=== PATIENT | male | born 1950 | race Asian ===

== ENCOUNTER 2017-07-05 10:59 | Inpatient (IN) | payer OTHER ==
[~2017-07-05] VITALS: Ht 170.2 cm; Wt 69.4 kg
[2017-07-05 11:11] VITALS: Ht 170.2 cm; Wt 69.4 kg
[2017-07-05 11:36] LABS: BASOPHIL % 0.5 % (0-2); PLATELET COUNT 226 x10^3mcL (130-400); RED CELL DISTRIBUTION WIDTH 13.2 % (11.5-14.5)
[2017-07-05 11:46] LABS: CALCIUM 8.2 mg/dL (8.5-10.1); CHLORIDE SERUM 105 mmol/L (98-107); CREATININE SERUM 0.8 mg/dL (0.7-1.3); GFR1 > 60 mL/min; GLUCOSE SERUM 127 mg/dL (74-106); POTASSIUM SERUM 3.4 mmol/L (3.5-5.1); SODIUM SERUM 138 mmol/L (136-145)
[2017-07-05 11:50] LABS: ALBUMIN 3.4 g/dL (3.4-5.0); ALKALINE PHOSPHATASE 65 U/L (46-116); ALT/SGPT 18 U/L (16-63); AST/SGOT 14 U/L (15-37); BILIRUBIN TOTAL 0.3 mg/dL (0.20-1.00); TOTAL PROTEIN, SERUM 7.1 g/dL (6.4-8.2)
[2017-07-05 13:41] LABS: CHOLESTEROL/HDL RATIO 2.9; MAGNESIUM 2.1 mg/dL (1.8-2.4); PHOSPHOROUS 3.1 mg/dL (2.5-4.9)
[2017-07-05 13:47] LABS: T3 TOTAL 0.94 ng/mL
[2017-07-05 13:52] LABS: FREE T4 1.18 ng/dL (0.76-1.46); FREE THYROXINE INDEX 3.1 ug/dL (1.4-4.5); T4(THYROXINE) 8.5 ug/dL (4.7-13.3)
[2017-07-05 14:02] VITALS: BP 121/76
[2017-07-05 17:39] VITALS: BP 115/68
[2017-07-05 22:14] VITALS: BP 114/65; BP 133/59
[2017-07-06 04:03] LABS: microscopic required? NO
[2017-07-06 04:13] LABS: urine erythrocyte NEGATIVE (NEGATIVE)
[2017-07-06 04:26] LABS: AMPHETAMINE QUAL UR NONE DETECTED (NEG <=1000)
[2017-07-06 05:21] VITALS: BP 117/63
[2017-07-06 08:13] LABS: BASOPHIL % 0.4 % (0-2); PLATELET COUNT 195 x10^3mcL (130-400); RED CELL DISTRIBUTION WIDTH 13.2 % (11.5-14.5)
[2017-07-06 08:22] LABS: CALCIUM 7.9 mg/dL (8.5-10.1); CHLORIDE SERUM 109 mmol/L (98-107); CREATININE SERUM 0.7 mg/dL (0.7-1.3); GFR1 > 60 mL/min; GLUCOSE SERUM 87 mg/dL (74-106); MAGNESIUM 2.3 mg/dL (1.8-2.4); PHOSPHOROUS 2.5 mg/dL (2.5-4.9); POTASSIUM SERUM 3.5 mmol/L (3.5-5.1); SODIUM SERUM 143 mmol/L (136-145)
[2017-07-06 08:59] VITALS: BP 107/71
[2017-07-06] MEDS ORDERED: MECLIZINE HCL12.5 MG PO (12:58)
[2017-07-06 13:30] VITALS: BP 107/71
[2017-07-06] MEDS ORDERED: ZOF4 PO (13:31)
[2017-07-06 13:36] VITALS: BP 118/65
== END 2017-07-06 15:05 | disposition home or self-care (01) | DRG 149 ==
LOC: ED 10:59 → DU 12:53
PROVIDERS: Emergency Medicine; Family Medicine
DX: H81.10 Benign paroxysmal vertigo, unspecified ear (principal); N17.0 Acute kidney failure with tubular necrosis; J98.11 Atelectasis; E87.6 Hypokalemia; Z68.23 Body mass index [BMI] 23.0-23.9, adult
CPT/HCPCS: 83880; 84439; J2550; J7030; J8597; Q0092